=== PATIENT | male | born 1960 | race Caucasian/White ===

== ENCOUNTER → 2021-12-28 | Outpatient (CLI) | payer MEDICARE ==
[~2021-12-28] MED LIST: ALBU0.63 NEB; ALBU18HF IH; ALBU5SOL5 IH; AMLO5TAB4 PO; ASPI-929 PO; BUDE10.2 IH; BUPR150T8 PO; CARV25TA PO; CEPH-350 PO; CLIN-109 PO; CLOP75TA PO; FOLI1TAB21 PO; FURO-80 PO; GABA300C10 PO; HYDR25TA9 PO; LISI10TA20 PO; MAGN400C PO; METF500T17 PO; MULT-186 PO; NIAC500T PO; OMEG100020 PO; OMEG1CAP24 PO; SIMV40TA20 PO; THIA250T7 PO
--- NOTE | 2021-12-28 12:53 | DIREP ---
PROCEDURE:CT ABDOMEN/PELVIS W/O CONTRAST COMPARISON:None. INDICATIONS:RLQ PAIN, RIGHT TESTICULAR PAIN TECHNIQUE:Axial images were created through the abdomen and pelvis without intravenous contrast material. No oral contrast was administered. Sagittal and coronal reconstructions were performed from source images. FINDINGS: LUNG BASES:Normal. No visible pulmonary or pleural disease. LIVER:Normal. No significant liver lesions are identified. BILIARY:Normal. No visible dilatation or calcification. PANCREAS:Normal. No lesion, fluid collection, ductal dilatation, or atrophy. SPLEEN:Normal. No enlargement or focal lesion. ADRENALS:Normal. No mass or enlargement. Nonspecific bilateral perinephric stranding. Mild bilateral renal vascular calcifications. URINARY TRACT:Normal. No focal lesions or hydronephrosis. AORTA/VASCULAR:There are aortic atherosclerotic calcifications present. No aneurysm. RETROPERITONEUM:Normal. No mass or adenopathy. BOWEL/MESENTERY:The appendix is visualized and appears normal. There is no intestinal obstruction, free fluid, free air or mesenteric inflammatory changes. Minimal sigmoid diverticulosis without evidence for diverticulitis. ABDOMINAL WALL:Minimal bulging in both inguinal canals without aj herniation. PELVIC ORGANS:Normal. No visible mass. Pelvic organs appropriate for patient age. BONES:Lower lumbar facet arthropathy. No acute deformities. OTHER:Negative. CONCLUSION: 1. Mild sigmoid diverticulosis without evidence for diverticulitis. 2. No acute findings. Dictated by: Maynor Grullon MD on 12/28/2021 at 12:41 PM
== END | disposition home or self-care (01) ==
LOC: RAD 10:12
PROVIDERS: ATTEND Nurse Practitioner Family
DX: K57.90 Diverticulosis of intestine, part unspecified, without perforation or abscess without bleeding (principal); I70.0 Atherosclerosis of aorta; M47.816 Spondylosis without myelopathy or radiculopathy, lumbar region; R10.31 Right lower quadrant pain; N50.811 Right testicular pain
CPT/HCPCS: 74176